=== PATIENT | female | born 1995 | race Caucasian/White ===

== ENCOUNTER 2025-05-03 23:45 | Emergency (ER) | payer OTHER ==
[2025-05-03 23:50] VITALS: BP 109/63; PULSE 74; RESP 18; TEMP 98.1; BMI 27.8
== END 2025-05-04 01:48 | disposition home or self-care (01) ==
LOC: JER 23:45
DX: O22.42 Hemorrhoids in pregnancy, second trimester (principal); K64.4 Residual hemorrhoidal skin tags; K62.89 Other specified diseases of anus and rectum; Z3A.20 20 weeks gestation of pregnancy
CPT/HCPCS: 99282-25